=== PATIENT | male | born 1980 | race Caucasian/White ===

== ENCOUNTER → 2018-01-17 13:05 | Outpatient (REF) | payer MEDICARE, SELFPAY ==
[2018-01-17 16:30] LABS: Amphetamine/Metha Screen,Urine Negative ng/mL (<1000); Barbiturates Screen,Urine Negative ng/mL (<200); Benzodiazepines Screen,Urine Negative ng/mL (200); Cannabinoid Screen,Urine Negative ng/mL (<50); Cocaine Screen,Urine Negative ng/g (<300); Methadone Screen,Urine Negative ng/mL (<300); Opiate Screen,Urine Negative ng/mL (<300); Phencyclidine Screen,Urine Negative ng/mL (<25)
== END ==
LOC: LAB 13:05
PROVIDERS: Visit Provider Emergency Medicine
DX: Z79.899 Other long term (current) drug therapy (principal)
CPT/HCPCS: 80305

== ENCOUNTER 2020-06-06 18:53 | Emergency (ER) | payer MEDICARE, SELFPAY ==
[2020-06-06 18:55] VITALS: BP 117/92; PULSE 92; RESP 18; O2SAT 98; BMI 15.3
--- NOTE | 2020-06-06 18:55 | ECG_ITS ---
APPROVED REPORT Exam: Resting ECG HR:136 bpm ECG Measurements Heart Rate 136 AXES RI 122 P 72 QRSd 86 QRS 77 QT 304 T 28 QTc 457 <Conclusion> Sinus tachycardia Right atrial enlargement Borderline ECG Electronically signed by : Alex Fajardo, 06/09/2020 12:37:37
--- NOTE | 2020-06-06 18:55 | XR_ITS ---
PROCEDURE: XR CHEST PORTABLE CLINICAL HISTORY: chest pain COMPARISON: CR CXR1 CHEST-PORTABLE from 08/20/2016 FINDINGS: The cardiomediastinal silhouette and pulmonary vascularity are within normal limits. The lungs are clear without infiltrates, suspicious nodules, or pleural effusions. No acute bony abnormalities. IMPRESSION: No acute findings. Dictated by: Alonzo Roberts MD 06/06/2020 20:19 Alonzo Roberts MD in [place] 06/06/2020 20:19
--- NOTE | 2020-06-06 18:57 | [facility].EDCP ---
ED Disposition Clinical Impression: Atypical chest pain Drug overdose Qualifiers: Encounter type: initial encounter Injury intent: accidental or unintentional Qualified Code(s): T50.901A - Poisoning by unspecified drugs, medicaments and biological substances, accidental (unintentional), initial encounter Disposition: Home, Self-Care Condition on Discharge: Fair Instructions: DI for Atypical Chest Pain, DI for Drug Overdose in Adults Referrals: Win Ambrosio MD [Staff Physician] - 3 days - Critical Care Critical Care Time: No Attestation: On , the high probability of a clinically significant, sudden or life threatening deterioration of the following system(s) required my full and direct attention, intervention and personal management. The time I documented below is in addition to time spent performing reported procedures but includes the following listed in this critical care notation. Medical Decision Making - Medical Records Medical records reviewed: Yes: I reviewed the patient's medical records. - Sharan Inquiry Pt receiving controlled substance: No Vital Signs: 06/06/20 18:55 Temperature Source Oral Pulse Rate [Right Brachial] 92 H Respiratory Rate 18 Blood Pressure [Right Arm] 117/92 H Blood Pressure Mean [Right Arm] 100 Blood Pressure Source [Right Arm] Automatic Cuff Blood Pressure Position [Right Arm] Sitting 02 Sat by Pulse Oximetry 98 Oxygen Delivery Method Room Air - Lab Data Lab results reviewed: Yes: I reviewed the patient's lab results. Lab Results 06/06/20 19:00: WBC 8.9, RBC 4.76, Hgb 14.0 L, Hct 43.1, MCV 90.5, MCH 29.4, MCHC 32.5, RDW 14.0, Plt Count 225, MPV 7.8, Neut % (Auto) 65.1, Lymph % (Auto) 28.2, Miner % (Auto) 5.4, Eos % (Auto) 0.7, Baso % (Auto) 0.6, Neut # (Auto) 5.8, Lymph # (Auto) 2.5, Miner # (Auto) 0.5, Eos # (Auto) 0.1, Baso # (Auto) 0.1 06/06/20 19:00: Sodium 149 H, Potassium 3.3 L, Chloride 110 H, Carbon Dioxide 28, Anion Gap 14.3, BUN 18, Creatinine 1.80 H, Estimated Creat Clear 49, Estimated GFR 42 L, Est GFR ( Amer) 51 L, Glucose 121 H, Calcium 10.1, Total Bilirubin 0.7, AST 44, ALT 46, Alkaline Phosphatase 104, Troponin I < 0.01, Total Protein 8.6 H, Albumin 4.8, Globulin 3.8 H, Albumin/Globulin Ratio 1.3, Lipase 53 Result diagrams: 06/06/20 19:00 06/06/20 19:00 Orders (Tests/Meds): ORDERS Category Date Time Status Chest XR -- portable [XR chest portable] Stat Exams 06/06/20 18:55 Taken Troponin I Q3H Lab 06/06/20 22:00 Ordered Troponin I Q3H Lab 06/07/20 01:00 Ordered ECG Request by /Lamonte Stat Y 06/06/20 18:55 Ordered - Radiology Data #1 Image(s): Chest Image Reviewed: Yes I reviewed the patient's radiology image Preliminary Findings: Normal/NAD Medical Decision Narrative: Patient here with chest pain intermittently for 3 to 4 days. Troponin negative. Symptomology is inconsistent with ACS and given 3 to 4 days of symptoms, certainly troponin would have been elevated at this time. We had difficulty obtaining an accurate EKG as patient is tweaking from methamphetamine use. Grossly he has no signs of STEMI on the monitor. Chest x-ray shows no signs of pneumonia, pneumothorax, florid pulmonary edema or widened mediastinum that would suggest dissection. Discharged with advised to follow-up with primary care provider in 2 to 3 days for reevaluation and counseled against drug use in the setting of chest pain. Chest Pain HPI - General Chief Complaint: Chest Pain Stated Complaint: CHEST PAIN Time Seen by Provider: 06/06/20 18:57 Mode of Arrival: EMS Source of Information: Patient, EMS Limitations: No Limitations - History of Present Illness HPI narrative: This is a 40-year-old male with a past medical history significant for methamphetamine abuse who presents to the emergency department for 3 to 4 days of intermittent left-sided nonradiating chest pain. He states it is not just whenever he does drugs, but also when his hi
--- NOTE | 2020-06-06 19:00 | PC.NURSE ---
Multiple attempt to collect EKG, patient moving all over stretchMD nathan aware new order to cancel EKG.
[2020-06-06 19:17] VITALS: BMI 19.0
[2020-06-06 19:18] LABS: Basophils # 0.1 K/mm3 (0-0.2); Basophils % 0.6 % (0.1-2.0); Eosinophils # 0.1 K/mm3 (0.0-0.4); Eosinophils % 0.7 % (0.1-12.0); Hematocrit 43.1 % (42.0-52.0); Lymphocytes # 2.5 K/mm3 (0.7-4.5); Lymphocytes % 28.2 % (10-50); Mean Corpuscular HGB Conc 32.5 g/dL (31.8-35.4); Mean Corpuscular Hemoglobin 29.4 pg (27.0-31.2); Mean Corpuscular Volume 90.5 fl (80-94); Mean Platelet Volume 7.8 fl (7.4-10.4); Monocytes # 0.5 K/mm3 (0.1-1.0); Monocytes % 5.4 % (1.7-9.3); Neutrophils # 5.8 K/mm3 (1.8-7.8); Neutrophils % 65.1 % (37.0-80.0); Platelet Count 225 K/mm3 (142-424); Red Blood Count 4.76 M/mm3 (4.60-6.20); White Blood Count 8.9 K/mm3 (4.8-10.8)
--- NOTE | 2020-06-06 19:18 | PC.NURSE ---
unable to obtain 12 lead due to patient not holding still. notified.
[2020-06-06 19:19] LABS: Alanine Aminotransferase 46 U/L (12-78); Albumin Level 4.8 g/dl (3.5-5.0); Albumin/Globulin Ratio 1.3 (1.1-1.8); Alkaline Phosphatase 104 U/L (38-126); Anion Gap 14.3 mEq/L (5-15); Aspartate Amino Transferase 44 U/L (17-59); Bilirubin,Total 0.7 mg/dl (0.2-1.3); Blood Urea Nitrogen 18 mg/dl (9-20); Calcium 10.1 mg/dl (8.4-10.2); Carbon Dioxide 28 mmol/L (22.0-30.0); Chloride 110 mmol/L (98-107); Creatinine Clearance Estimated 49 mL/min (50-200); Estimated Glomerular Filt Rate 42 ml/min (>60); GFR (African American) 51 ML/MIN (>60); Globulin 3.8 g/dL (1.3-3.2); Glucose 121 mg/dl (74-100); Lipase 53 U/L (23-300); Potassium 3.3 mmoL/L (3.5-5.1); Sodium 149 mmol/L (136-145); Total Protein,Serum 8.6 g/dl (6.3-8.2)
[2020-06-06 19:33] LABS: Troponin I < 0.01 ng/ml (0.00-0.034)
--- NOTE | 2020-06-06 19:35 | PC.NURSE ---
Patient in bathroom for last 10 min. Reports he is okay, just trying to pee. will continue to monitor.
[2020-06-06 19:41] VITALS: BP 90/68; PULSE 124; RESP 16; TEMP 36.8
--- NOTE | 2020-06-06 19:47 | PC.NURSE ---
MD aware of Vitals signs, report okay to DC
--- NOTE | 2020-06-06 19:50 | PC.NURSE ---
pt left er via wheelchair.
== END 2020-06-06 19:50 | disposition home or self-care (01) ==
PROVIDERS: Emergency Provider Emergency Medicine
DX: R07.89 Other chest pain (principal); T43.621A Poisoning by amphetamines, accidental (unintentional), initial encounter; Y92.009 Unspecified place in unspecified non-institutional (private) residence as the place of occurrence of the external cause; F41.8 Other specified anxiety disorders; F17.210 Nicotine dependence, cigarettes, uncomplicated
CPT/HCPCS: 71045; 80053; 83690; 84484; 85025; 93005; 99283

== ENCOUNTER 2020-06-06 20:29 | Emergency (ER) | payer MEDICARE, MEDICAID, SELFPAY ==
[2020-06-06 20:35] VITALS: BP 136/95; PULSE 142; RESP 16; TEMP 36.6; O2SAT 97; BMI 15.3
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
[2020-06-06 21:06] VITALS: BP 128/98; PULSE 132; RESP 16; TEMP 37; O2SAT 98
== END 2020-06-06 21:09 ==
PROVIDERS: Emergency Provider Student in an Organized Health Care Education/Training Program; PCP Emergency Medicine
DX: Z00.8 Encounter for other general examination (principal); F19.90 Other psychoactive substance use, unspecified, uncomplicated; F41.8 Other specified anxiety disorders; F17.210 Nicotine dependence, cigarettes, uncomplicated
CPT/HCPCS: 71045; 80053; 83690; 84484; 85025; 93005; 99282; 99283